=== PATIENT | female | born 1945 | race Caucasian/White ===

== ENCOUNTER 2023-10-07 02:49 | Inpatient (IN) | payer OTHER, SELFPAY ==
[2023-10-06 23:10] VITALS: BP 124/98; BMI 23.5
[2023-10-06 23:21] LABS: % Basophils 0.5 % (0-2); % Immature Granulocytes 0.3 % (0-0.5); % Lymphocytes 11.3 % (20.5-51.1); % Monocytes 0.3 % (1.7-9.3); % Neutrophils 86.6 % (42.2-75.2); Absolute Eosinophils 0.1 10^3/uL (0-0.7); Absolute Lymphocytes 0.7 10^3/uL (1.2-3.4); Absolute Neutrophils 5.3 10^3/uL (1.4-6.5); Hematocrit 40.4 % (37.0-47.0); Hemoglobin 13.7 g/dL (12.0-16.0); Mean Corp Hgb Conc. 33.9 g/dL (33.0-37.0); Mean Corpuscular Hgb 29.7 pg (27.0-31.0); Mean Corpuscular Volume 87.6 fL (81.0-99.0); Mean Platelet Volume 9.7 fL (7.4-10.4); Nucleated Red Blood Cells % 0 %; Platelet Count 173 10^3/uL (130-400); Red Blood Cell Count 4.61 10^6/uL (4.20-5.40); White Blood Cell Count 6.1 10^3/uL (4.8-10.8)
--- NOTE | 2023-10-06 23:24 | ED.GENMED ---
History of Present Illness
General
Chief Complaint: Abdominal Symptoms
Source: patient and ambulance crew
Exam Limitations: none
Time Seen by Provider: 10/06/23 23:14
Nursing documentation reviewed up to this point in time: agreed with
History of Present Illness
History of Present Illness:
This is an 78-year-old woman who resides at home with her . She has remote history of kidney stones, remote history of neuropathy of her feet, takes no medicines on a daily basis.
She and her were vacationing in [place] for a week, fishing, and returned today. She complains of somewhat abrupt onset of left lateral flank pain that began this evening. Flank pain has been persistent over the past several hours with
onset of shaking chills, nausea and vomiting tonight. She continues with moderate shaking chills and presents via EMS.
She denies cough nor congestion, no chest pain nor palpitations, no dizziness nor lightheadedness. She denies diarrhea or constipation, denies dysuria and urgency and or hematuria.
She admits that while vacationing in [place] it was quite hot and humid but she attempted to keep up with her fluids. She denies insect bites nor stings, denies rash. She denies headache, denies neck nor back pain.
No close contacts with similar symptoms.
She took 2 Tums tonight with onset of symptoms but then vomited.
Past History
Past History
ED Past Medical History: Other (Kidney stones, idiopathic neuropathy of feet)
ED Past Surgical History: Gynecological (Hysterectomy/cystocele/rectocele repair 2004) and Other (Inguinal as well as umbilical hernia repair December 2022)
Social History
Tobacco: Non-smoker
Alcohol: None
Drug: None
Personal:
Living: with family
Employment: Retired
Family History
Family History: Other (Noncontributory)
Phy Exam
Physical Exam
Physical Exam:
GENERAL: 78-year-old woman appears somewhat younger than stated age, awake and alert, appears in moderate distress, moderately tremulous. Cooperative. Vital signs reviewed. Febrile with oral temperature 100.3 �F. Normotensive.
EYE: pupils equal and reactive. anicteric
NECK: Supple, nontender, no meningismus, no significant adenopathy.
ENT: posterior pharynx is clear, oral mucosa is moist. TM clear b/l, nares patent.
CARDIAC: Regular rate and rhythm. no murmur.
LUNGS: Clear breath sounds bilaterally, no acute respiratory distress, no wheezes/rales/rhonchi
ABDOMEN: Soft, nondistended, without focal tenderness, no r/g, mild left CVA tenderness with percussion. Normoactive BS.
NEUROLOGICAL: Alert and oriented x3, no focal neuro deficits. Gait is logan and steady. Moderate resting tremor.
SKIN: Hot to touch and dry, normal color, skin intact. No rash.
MUSCULOSKELETAL: No C/C/E. peripheral pulses are full and equal b/l. No palpable tenderness.
PSYCH: Mildly anxious, tremulous, easily communicative.
Course
Orders/Labs/Results
Orders:
Orders
10/06/23 23:14
Complete Blood Count/With Diff Urgent
Comprehensive Metabolic Panel Urgent
Lipase Urgent
10/06/23 23:16
Urinalysis Reflex To Culture Urgent
Date Specimen was Collected: 10/07/23
Time Specimen was Collected: 00:21
0.9% Sodium Chloride 1000 ml [Nss] 2,200 ml IV NOW STA
10/06/23 23:19
COVID-19 Antigen Urgent
Source: Nasal Swab
Lactic Acid Urgent
10/06/23 23:22
Blood Culture Urgent
ILDA Source: Blood/Venous
Specimen Description:
10/06/23 23:23
Acetaminophen 1000MG/100Ml [Ofirmev] 1,000 mg in 100 ml IV ONCE
Acetaminophen IV Indication:: Targeted Temp Management
Ondansetron Injectable [Zofran] 4 mg IV NOW STA
10/07/23 00:05
CT Abd/pelvis W Iv Cont Urgent
Reason For Exam: fever, rigors, left flank pain, N/V
10/07/23 00:31
Urine Microscopic Reflex Cult Urgent
Urine Culture Urgent
ILDA Source: U
Specimen Description:
Date Specimen was Collected: 10/07/23
Time Specimen was Collected: 00:21
10/07/23 01:40
Piperacillin/Tazo 4.5 Gram [Zosyn] 4.5 gram in 100 ml IV NOW
10/07/23 02:01
Admit/Transfer Patient As Directed
Co-Sign Provider:
Level of Care: Inpatient admission
Assign to:: Telemetry
Physician / Group: judy
Diagnosis: SIRS suspect evolving sepsis due to proximal 4 m Lt ureteric stone
Reason for Telemetry: Other
Other Reason for Telemetry: sepsis
Date to Stop Telemetry: 10/09/23
Time to Stop Telemetry: 11:00
Reason for Hospitalization: SIRS picture suspect evolving sepsis due to proximal 4 m Lt ureteric stone
suspect infected
At risk for acute Lt pyelonephritis
Associated mild renal insufficiency
Expected length of stay greater than two midnights?: Yes
ELOS- Estimated Length of Stay in days: 2
I certify the patient meets the requirements for IP care: Yes
10/07/23 02:02
Code Status As Directed
Resuscitation Status: Full Code
10/07/23 02:51
0.9% Sodium Chloride 1000 ml [Nss] 1,000 ml IV 100 mls/hr
Acetaminophen [Tylenol] 650 mg PO Q4HPRN PRN
HYDROmorphone [Dilaudid] 0.5 mg IV Q3HPRN PRN
Ondansetron Injectable [Zofran] 4 mg IV Q6HPRN PRN
10/07/23 02:51
UROLOGY CONSULT Routine
Consulting Provider: Baljit Panda Jr.
Was physician already notified: Yes
Comment: SIRS picture suspect evolving sepsis due to prox 4 m Lt ureteric stonne
Activity As Directed
Activity Level: With Assistance
Intake/ Output As Directed
Frequency: Per unit guidelines
Pneumatic Compression Sleeves As Directed
Type: Knee high
Vital Signs As Directed
Frequency: Per unit guidelines
Weight As Directed
Frequency: Daily
DX Deep Vein Thrombosis Video Routine
10/07/23 03:40
Complete Blood Count/No Diff IN AM
Comprehensive Metabolic Panel IN AM
Lactic Acid Q4H
Comment: repeat q4 hours x 4 or until less than 2 mmol/L
10/07/23 06:00
CefTRIAXone [Rocephin] 1,000 mg IV Q24H
10/07/23 06:56
Lactic Acid Q4H
Comment: repeat q4 hours x 4 or until less than 2 mmol/L
10/07/23 08:00
Tamsulosin [Flomax] 0.4 mg PO DAILY
10/07/23 10:37
Lactic Acid Q4H
Comment: repeat q4 hours x 4 or until less than 2 mmol/L
10/07/23 14:59
Lactic Acid Q4H
Comment: repeat q4 hours x 4 or until less than 2 mmol/L
10/09/23 11:00
DC Protocol for Telemetry ONCE
Abnormal Lab Results
10/06/23 10/06/23 10/07/23
23:14 23:19 00:31
Absolute Lymphs (auto) 0.7 L 10^3/uL
(1.2-3.4)
Absolute Monos (auto) 0.0 L 10^3/uL
(0.1-0.6)
Neutrophils % 86.6 H %
(42.2-75.2)
Lymphocytes % 11.3 L %
(20.5-51.1)
Monocytes % 0.3 L %
(1.7-9.3)
BUN 29 H mg/dl
(7-17)
Glucose 125 H mg/dl
(70-99)
Lactic Acid 3.0 H mmol/L
(0.7-2.0)
Ur Occult Blood Reflex 1+ A
(Negative)
Leukocyte Esterase Rfl 1+ A
(Negative)
Urine RBC 3-6 A /HPF
(0-2)
Urine Bacteria (Reflex) Few A
(Negative)
10/06/23 23:14
10/06/23 23:14
Vital Signs
Initial and Last Documented VS:
Initial Vital Signs
Temp Pulse Resp BP Pulse Ox
100.3 F 94 18 124/98 95
10/06/23 23:10 10/06/23 23:10 10/06/23 23:10 10/06/23 23:10 10/06/23 23:10
Last Documented Vital Signs
Temp Pulse Resp BP Pulse Ox
100.2 F 50 16 121/56 96
10/07/23 19:00 10/07/23 19:00 10/07/23 19:00 10/07/23 19:00 10/07/23 19:00
MDM/Problems Addressed
Differential Diagnosis Includes:
Acute febrile illness with onset of tremor, concerning for rigors, concerning for SIRS/sepsis.
Left flank pain concerning for pyelonephritis, kidney stone.
With nausea and vomiting, concern for early small bowel obstruction, other consideration is colitis gastroenteritis, left lower lobe pneumonia, viral syndrome.
Will initiate IV fluid bolus, IV Tylenol for fever and IV Zofran for nausea.
Labs are pending including lactic acid, blood cultures. Will check urinalysis with reflex to culture.
COVID-19 antigen pending. Acute COVID URI is less likely as patient has not had a cough nor congestion.
Will plan for CT abdomen and pelvis to assess for potential kidney stone, colitis or other acute intra-abdominal process.
Chronic conditions affecting care: Previous abdomnial surgery (Hysterectomy/cystocele/rectocele repair 2004. Umbilical and left inguinal hernia repair December 2022) and Kidney disease (History of kidney stones)
*Radiology
Radiology exam reviewed: radiology read reviewed
*Pulse Oximetry
Patient hypoxic: no
*Critical Care Note
Total Time (30-74mins, 75-104mins- exclusive of procedures): 30
comment:
Critical care statement: A total of 30 minutes of critical care time was provided for this patient. This includes management of unstable vital signs, evaluation of the patient at bedside, reviewing the patient's pertinent medical records, discussion
with consultants, review of old EKGs and review of pertinent medical records. This time with separate from time utilized to perform the aforementioned documented procedures
Update Note
Update Note:
10/07/2023 01:50 AM
Patient remains hemodynamically stable. Fevers improving.
Lactic acid elevated at 3.0. Normal white blood cell count.
Urinalysis not consistent with UTI however CT shows an obstructing proximal left ureteral stone with moderate hydronephrosis with perinephric stranding concerning for pyelonephritis/infected stone.
IV Zosyn initiated.
Hospitalist as well as urology notified.
Will admit to hospitalist service with plan for urgent urology evaluation this a.m.
ED Attending Note
-
Portions of this chart may have been created with voice recognition software.� Occasional wrong word or��sound alike� substitutions may have occurred due to the inherent limitations of voice recognition software.
Discharge Plan
Departure
Patient Disposition: Admit
Date of Disposition: 10/07/23
Time of Disposition: 01:59
Admit to: IMU
Admit to doctor: Judy
Presentation/result/management discussed w/ accepting MD/DO: Hospitalist
Condition: Serious
Discharge Problem:
Calculus of proximal left ureter, SIRS (systemic inflammatory response syndrome)
Interventions
Interventions:
*Risk Screen - Suicide Last Done: 10/07/23 03:00
*General Assessment Last Done: 10/06/23 23:12
*Neglect/Abuse Screening Last Done: 10/06/23 23:12
ED- Fall Risk Assessment Last Done: 10/07/23 02:22
*ED COVID-19 Vaccine History Last Done: 10/07/23 03:00
*Nursing Disposition Last Done: 10/07/23 02:32
NO-Daykjl-Hijasrbuzl Assessment Last Done: 10/06/23 23:38
Discharge Date and Time
Discharge Date/Time: 10/07/23 02:33
[2023-10-06] MEDS: NSS 2200 ML IV (23:26)
[2023-10-06] MEDS: ZOFRAN 4 MG IV (23:31)
[2023-10-06] MEDS: OFIRMEV 100 IV (23:32)
[2023-10-06 23:36] LABS: ALT (SGPT) 27 U/L (0-35); AST (SGOT) 33 U/L (14-36); Albumin 4.7 g/dl (3.5-5.0); Alkaline Phosphatase 74 U/L (38-126); Blood Urea Nitrogen 29 mg/dl (7-17); Calcium 9.7 mg/dl (8.4-10.2); Carbon Dioxide 26 mmol/L (22-30); Chloride 106 mmol/L (98-107); Estimated Creatinine Clearance 49 ml/min; Glucose 125 mg/dl (70-99); Lipase 193 U/L (23-300); Potassium 4.2 mmol/L (3.5-5.1); Sodium 141 mmol/L (135-145); Total Bilirubin 0.8 mg/dl (0.2-1.3); Total Protein 7.4 g/dl (6.3-8.2); eGFR 56.95
[2023-10-06 23:38] LABS: COVID-19 Antigen Negative (Negative)
[2023-10-07] VITALS (14 sets, daily range): BP systolic 106–135; BP diastolic 42–57; BMI 23.2
[2023-10-07 00:38] LABS: Urine Albumin Negative (Neg - Trace); Urine Bilirubin Negative (Negative); Urine Character Clear (Clear); Urine Color Straw; Urine Glucose Negative (Negative); Urine Ketone Negative (Negative); Urine Leukocyte 1+ (Negative); Urine Nitrite Negative (Negative); Urine Occult Blood 1+ (Negative); Urine Specific Gravity 1.015 (<1.030); Urine Urobilinogen Negative (Neg - 1+)
[2023-10-07 00:53] LABS: Urine Bacteria Few (Negative)
[2023-10-07] MEDS: ZOSYN 100 IV (01:53)
--- NOTE | 2023-10-07 01:55 | HPS.HSE ---
Family Physician
-
Family Physician: NOT KNOW UNKNOWN - PT DOES
Chief Complaint
-
acute Lt flank pain with chills
History of Present Illness
78F [facility] HX HX Kidney stone, idiopathic peripheral neuropathy of feet seen at ER for evaluation of Lt flank pain
Abrupt onset of Lt flank pain
- vacationing in the are from [place]
- persistent pain for last few hrs
- then followed by onset of chills and rigors nausea and vomiting tonight.
- Denies dysuria and urgency and or hematuria.
- Remote HX Kidney stones x2 with spontaneous passage with IVF
ROS:
- denies diarrhea or constipation
At ER
T max was 100.3 HR > 90
Medical History
Past Medical History
Past Medical History: Reports Other
Additional Past Medical History:
Kidney stones
Idiopathic neuropathy of feet
Past Surgical History: Reports Other
Additional Past Surgical History:
Hysterectomy/cystocele/rectocele repair 2004
Inguinal as well as umbilical hernia repair December 2022
Social History
Tobacco: Non-smoker
Alcohol: None
Drug: None
Personal:
Living: With Family
Family History
Family History: Not pertinent
Allergies / Home Medications
Allergies reflects when Allergies were last updated in [facility].
Home Medications with original date entered in [facility]
Allergy/Medication List:
Allergies
Allergy/AdvReac Type Severity Reaction Status Date / Time
No Known Allergies Allergy Verified 01/24/23 09:00
Home Medications
ascorbic acid (vitamin C) 500 mg tablet (Vitamin C) 500 mg PO DAILY 01/19/23
cholecalciferol (vitamin D3) 50 mcg (2,000 unit) tablet (Vitamin D3) 50 mcg PO DAILY 01/19/23
hydrochlorothiazide 12.5 mg tablet 12.5 mg PO DAILY 01/19/23
magnesium glycinate 100 mg (as glycinate) tablet 200 mg PO DAILY 01/19/23
vitamin K2 100 mcg capsule 100 mcg PO DAILY 01/19/23
zinc acetate 50 mg (zinc) capsule 50 mg PO DAILY 01/19/23
acetaminophen 325 mg tablet 650 mg (2 x 325 mg) PO Q4HPRN PRN mild pain #1 tab 01/24/23
ibuprofen 200 mg tablet 400 - 600 mg (2 - 3 x 200 mg) PO Q6HPRN PRN moderate pain #1 tab 01/24/23
oxycodone 5 mg tablet 5 mg PO Q4HPRN PRN breakthrough/severe pain #10 tabs 01/24/23
Review of Systems
-
Constitutional: Reports Fever, Chills and Other (rigors )
EENT: Reports No Symptoms
Respiratory: Reports No Symptoms
Cardiac: Reports No Symptoms
Abdomen/GI: Reports Abdominal Pain (Lt flank pain ), Nausea and Vomiting; Denies Diarrhea or Constipated
: Reports Flank Pain (Lt flank ); Denies Dysuria or Frequency
Musculoskeletal: Reports No Symptoms
Skin: Reports No Symptoms
Neurological: Reports No Symptoms
Endocrine: Reports No Symptoms
Hematologic/Lymphatic: Reports No Symptoms
Psych: Reports No Symptoms
Physical Exam
Vital Signs
Vital Signs
Temp Pulse Resp BP Pulse Ox
99.8 F 94 18 124/98 95
10/07/23 00:30 10/06/23 23:10 10/06/23 23:10 10/06/23 23:10 10/06/23 23:10
Physical Exam
General: Well Developed, Well Nourished, No Apparent Distress, Comfortable and Conversant
HEENT: NormoCephalic, Anicteric and Moist mucous membranes
Respiratory: Clear; No Wheezes, Rales or Rhonchi
Cardiac: S1/S2 and Regular Rhythm; No Murmur
Breast: Deferred by me
GI: Soft, Non Tender, Non Distended and Normal Bowel Sounds
Genito-urinary: No costovertebral tender (with deep palpation to Lt CVA on my exam )
Musculoskeletal: No Edema
Skin: Warm and Dry
Neuro: AO x 3 and Nonfocal/grossly intact
Psych: Calm and Intact Judgment/Insight
Laboratory Results
-
10/06/23 23:14
10/06/23 23:14
Laboratory Results
Lactic Acid 3.0 mmol/L (0.7-2.0) H 10/06/23 23:19
Total Bilirubin 0.8 mg/dl (0.2-1.3) 10/06/23 23:14
AST 33 U/L (14-36) 10/06/23 23:14
ALT 27 U/L (0-35) 10/06/23 23:14
Alkaline Phosphatase 74 U/L (38-126) 10/06/23 23:14
Lipase 193 U/L (23-300) 10/06/23 23:14
Data Reviewed
-
CT Scan: Discussed with Physician
Lab Data: Labs Reviewed by me
Impression/Plan
-
Reviewed VS: T max 100.3 HR 94 BP 124/98
Data
WCC 6.1
Cr 1.0
eGFR 56
LA 3.0
UA: unremarkable
NEG Covid
Prelim CT AP
4 mm stone at prox ureter.
NO PRIOR hospitalist admission:
ASSESSMENT & PLAN
Pending Rx reconciliation
SIRS picture suspect evolving sepsis due to proximal 4 m Lt ureteric stone suspect infected
At risk for acute Lt pyelonephritis
Associated mild renal insufficiency
Remote HX Kidney stones x2 with spontaneous passage with IVF
- BCx sent
- IV CFTX in place of Zosyn
- NPO and IVF
- PRN Analgesia
- PRN antiemetics
- trend Cr
- Flomax 0.4 mg daily
- Uro consulted and will take her to OR as first case
Essential HTN
- held HCTZ for now
DVT Px: SCD
Code: Full
IP TLM
--- NOTE | 2023-10-07 03:00 | PTCARENOTE ---
Pt arrived from ED on 10/06 at 02:45 with a dx of SIR suspect evoling sepsi due to proximal 4M ureteric stone. AxO3, bed in low position and her call mercer is in reach.
[2023-10-07] MEDS: NSS 1000 IV ×3 (03:10→23:20)
[2023-10-07 03:58] LABS: Hemoglobin 12.2 g/dL (12.0-16.0); Mean Corp Hgb Conc. 33.9 g/dL (33.0-37.0); Mean Corpuscular Hgb 29.8 pg (27.0-31.0); Mean Platelet Volume 9.3 fL (7.4-10.4); Platelet Count 128 10^3/uL (130-400); Red Blood Cell Count 4.09 10^6/uL (4.20-5.40); Red Cell Dist. Width 13.1 % (11.5-14.5); White Blood Cell Count 5.8 10^3/uL (4.8-10.8)
[2023-10-07 04:15] LABS: ALT (SGPT) 48 U/L (0-35); AST (SGOT) 96 U/L (14-36); Albumin 3.6 g/dl (3.5-5.0); Alkaline Phosphatase 66 U/L (38-126); Blood Urea Nitrogen 25 mg/dl (7-17); Carbon Dioxide 23 mmol/L (22-30); Chloride 109 mmol/L (98-107); Estimated Creatinine Clearance 49 ml/min; Glucose 131 mg/dl (70-99); Lactic Acid 2.9 mmol/L (0.7-2.0); Potassium 3.7 mmol/L (3.5-5.1); Sodium 140 mmol/L (135-145); Total Bilirubin 1.3 mg/dl (0.2-1.3); eGFR 56.95
[2023-10-07] MEDS: ROCEPHIN 1000 MG IV ×2 (05:29→15:43)
[2023-10-07] MEDS: STERILE WATER FOR INJECTION 10 ML IV ×2 (05:29→15:43)
--- NOTE | 2023-10-07 07:12 | CON.MD ---
Consultation - Medical
-
see dictated note
pt with remote hx of stones
says she knows she had 'stones' in the left kidney
presents with some left flank pain/fevers and chills
fortunately- HD stable
CT shows abnl appearing left kidney=- multiple cysts- appears to have complex caliceas with large stone burden
prox left ureteral stone with hydro
plan
reviewed with pt
explained the importance of stent decompression of kidney with stone and fever
reviewed the possible need for perc tube
reviewed risks of non intervention
reviewed possible post op sepsis
to proceed to OR within the hour for stent
[2023-10-07 07:33] LABS: Lactic Acid 2.6 mmol/L (0.7-2.0)
--- NOTE | 2023-10-07 07:37 | PTCARENOTE ---
Pt transported to OR bed 1 with assistance of PCT. Pt urinated. VSS.
--- NOTE | 2023-10-07 08:15 | W.IMMPOSTOP ---
Surgical Immed Post Op Note
-
Primary Surgeon:
mayra
Assisting Surgeon:
Pre-op Diagnosis:
left ureteral stone
Post-op Diagnosis:
same
Procedure Performed:
cysto/left ureteral stent
Anesthesia Type:
gen
Specimen / Cultures:
ucx
Estimated Blood Loss:
1cc
Complications:
none
Operative Findings:
large complex stone burden in left kidney
stent placed- no sig pyonephrosis
gent given pre-procedure
to pacu in stable condition
[2023-10-07 09:32] LABS: Urine Albumin Trace (Neg - Trace); Urine Bilirubin Negative (Negative); Urine Character Slightly Cloudy (Clear); Urine Color Yellow; Urine Glucose Negative (Negative); Urine Ketone Negative (Negative); Urine Leukocyte 2+ (Negative); Urine Nitrite Positive (Negative); Urine Occult Blood 4+ (Negative); Urine Specific Gravity 1.005 (<1.030); Urine Urobilinogen Negative (Neg - 1+)
--- NOTE | 2023-10-07 09:40 | PTCARENOTE ---
Pt received from PACU. Pt is not complaining of pain at this time. Slightly drowsy. NSR. Pt ambulating to the bathroom with a one person assist.
[2023-10-07 09:46] LABS: Urine Bacteria Moderate (Negative); Urine Red Blood Cell 0-2 /HPF (0-2); Urine White Cell 40-50 /HPF (0-5)
[2023-10-07 10:56] LABS: Lactic Acid 2.1 mmol/L (0.7-2.0)
--- NOTE | 2023-10-07 13:20 | CM ---
Reviewed the chart notes and spoke with the patient at the bedside. The patient resides with her spouse in a two story home with multiple steps to enter. The patient reports on DME/VN/SNF in the past. The patient confirmed her pharmacy of choice
is the [facility]. CM continues to be available to patient/family and is monitoring medical plan for needs at discharge.
Plan: Discharge plans will depend on the patient's progress.
--- NOTE | 2023-10-07 13:35 | W.PN.HOSP.TC ---
Today's Communication/Plan
-
iv abx
f/u cultures
urology placed stent today
monitor UO and renal function
Assessment / Plan
Assessment / Plan
Physical Exam
General: Well Developed, Well Nourished, No Apparent Distress, Comfortable and Conversant
HEENT: NormoCephalic, Anicteric and Moist mucous membranes
Respiratory: Clear; No Wheezes, Rales or Rhonchi
Cardiac: S1/S2 and Regular Rhythm; No Murmur
Breast: Deferred by me
GI: Soft, Non Tender, Non Distended and Normal Bowel Sounds
Genito-urinary: No costovertebral tender (with deep palpation to Lt CVA on my exam )
Musculoskeletal: No Edema
Skin: Warm and Dry
Neuro: AO x 3 and Nonfocal/grossly intact
Psych: Calm and Intact Judgment/Insight
#Sepsis
#Complex left ureteral stone
#Possible pyelonephritis
�Continue IV antibiotics
� Follow-up cultures
� Maintain MAP greater than 65
� IV fluids
#Moderate left hydronephrosis
#Left nephrolithiasis
� Stent placed today
� Urology on board
Continue to monitor urinary function
Essential HTN
- held HCTZ for now
DVT Px: HSQ
Code: Full
Total time spent on today's encounter was 50 minutes which included time spent in counseling the patient/family regarding diagnosis and treatment plan as listed above, goals of care, and symptom management. Case was discussed with nursing staff,
specialists, and care coordinators/case management. All labs and imaging personally reviewed by me. Remainder the time spent in detailed review of previous records, lab data, imaging, and other medical provider documentation.
Anticipated Discharge: 24 - 48 hours
Subjective/Interval History
-
Date of Service: October 07, 2023
For stent today, no acute events overnight
Objective Data
-
Labs:
Laboratory Results
10/07/23
03:40
WBC 5.8
Hgb 12.2
Hct 36.0 L
Plt Count 128 L D
Sodium 140
Potassium 3.7
Chloride 109 H
Carbon Dioxide 23
BUN 25 H
Creatinine 1.0
Glucose 131 H
Calcium 9.0
Total Bilirubin 1.3
AST 96 H
ALT 48 H
Alkaline Phosphatase 66
Vital Signs:
Vital Signs
Temp Pulse Resp BP Pulse Ox
97.6 F 63 17 106/42 96
10/07/23 11:45 10/07/23 11:45 10/07/23 11:45 10/07/23 11:45 10/07/23 11:45
I&O
10/06/23 10/07/23 10/08/23
06:59 06:59 06:59
Intake Total 103 / 103
Output Total 300 / 300
Balance -300 / -300 103 / 103
Review of Systems
-
History Source: Patient
All other systems: Not reviewed unless documented
Data Reviewed
-
CT Scan: Image personally visualized and interpreted and Report Reviewed by me
Labs: Labs Reviewed by me
[2023-10-07 15:18] LABS: Lactic Acid 2.6 mmol/L (0.7-2.0)
[2023-10-07] MEDS: Pyridium 100 MG PO ×2 (15:37→23:19)
[2023-10-07] MEDS: STERILE WATER FOR INJECTION IV (15:43)
[2023-10-07] MEDS: HEPARIN 5000 UNITS SC (20:35)
[2023-10-08] VITALS (7 sets, daily range): BP systolic 114–146; BP diastolic 44–64; BMI 23.8
--- NOTE | 2023-10-08 06:29 | W.PN.URO.CBU ---
Today's Communication / Plan
-
outpt f/u with dr nunez
Diagnosis
-
Date of Service: October 08, 2023
-
Patient Diagnosis:
Post Op Day:
Objective
-
Vital Signs
Temp Pulse Resp BP Pulse Ox
98.0 F 36 16 114/44 97
10/08/23 03:00 10/08/23 03:00 10/08/23 03:00 10/08/23 03:00 10/08/23 03:00
Intake and Output
10/06/23 10/07/23 10/08/23
06:59 06:59 06:59
Intake Total 3943 / 3943
Output Total 300 / 300 1775 / 1775
Balance -300 / -300 2168 / 2168
Intake:
Oral fluids 1443 / 1443
IV fluids (Total) 2500 / 2500
NS 100 / 100
Output:
Urine, Voided 300 / 300 1775 / 1775
Other:
Number of approximated MODERATE 2
amounts of urine
Physical Exam
-
General - well developed, well nourished, no acute distress
Chest - clear bilaterally
Abdomen - soft, non-tender, positive bowel sounds, no CVAT, no incisional pain or distention
Genitalia - normal
Rectal - normal
Skin - warm & dry with no rash
Neuro - AOx3, no motor deficits
Extremities - no clubbing, no cyanosis, no edema
Incision - clean, dry
Dressing - clean, dry, intact
--- NOTE | 2023-10-08 06:30 | W.PN.URO.CBU ---
Today's Communication / Plan
-
await cx's
Assessment / Plan
-
complex left renal stone burden with obstructing prox stone- s/p stent
gram neg bacteremia-suspect gu source
continue antibx- await cx results
outpt f/u with dr nunez
? cardiology eval for bradycardia- will defer to med team
Diagnosis
-
Date of Service: October 08, 2023
-
Patient Diagnosis
complex left renal stone burden with obstructing prox left ureteral stone
gram neg bacteremia
Post Op Day:
left ureteral stent 10/06
Subjective
-
pt stable
no fevers
voiding without difficulty
ucx pending- blood cx + for gram neg rods
also some asymptomatic bradycardia
Objective
-
Vital Signs
Temp Pulse Resp BP Pulse Ox
98.0 F 36 16 114/44 97
10/08/23 03:00 10/08/23 03:00 10/08/23 03:00 10/08/23 03:00 10/08/23 03:00
Intake and Output
10/06/23 10/07/23 10/08/23
06:59 06:59 06:59
Intake Total 3943 / 3943
Output Total 300 / 300 1774 / 177
Balance -300 / -300 2168 / 2168
Intake:
Oral fluids 1443 / 1443
IV fluids (Total) 2500 / 2500
NS 100 / 100
Output:
Urine, Voided 300 / 300 1774 / 177
Other:
Number of approximated MODERATE 2
amounts of urine
Review of Systems
-
Constitutional: Fatigue
Respiratory: No Symptoms
Cardiac: No Symptoms
Abdomen/GI: No Symptoms
Physical Exam
-
General - no acute distress
--- NOTE | 2023-10-08 06:30 | PTCARENOTE ---
Pt HR rate dipped to 30's overnight then into the 20s. Pt was not sleeping at the time her heart rate went to 27. I went in to check on Mrs. Monahan often throughout the night. She was awake and asymptomatic. I [place] Texted SALES TEACHER Cecilia Rivera to make her
aware. I suggested a Cardio consult. She gave no new orders but said she would pass it on to her replacement on & I should do the same.
[2023-10-08 07:58] LABS: Hematocrit 36.5 % (37.0-47.0); Mean Corp Hgb Conc. 32.9 g/dL (33.0-37.0); Mean Corpuscular Hgb 29.5 pg (27.0-31.0); Mean Corpuscular Volume 89.7 fL (81.0-99.0); Mean Platelet Volume 10.1 fL (7.4-10.4); Platelet Count 139 10^3/uL (130-400); Red Blood Cell Count 4.07 10^6/uL (4.20-5.40); Red Cell Dist. Width 13.4 % (11.5-14.5); White Blood Cell Count 10.1 10^3/uL (4.8-10.8)
[2023-10-08 08:26] LABS: ALT (SGPT) 195 U/L (0-35); AST (SGOT) 141 U/L (14-36); Albumin 3.4 g/dl (3.5-5.0); Alkaline Phosphatase 75 U/L (38-126); Blood Urea Nitrogen 24 mg/dl (7-17); Carbon Dioxide 20 mmol/L (22-30); Chloride 112 mmol/L (98-107); Estimated Creatinine Clearance 61 ml/min; Glucose 157 mg/dl (70-99); Magnesium 2.1 mg/dl (1.6-2.3); Potassium 4.7 mmol/L (3.5-5.1); Sodium 139 mmol/L (135-145); Total Bilirubin 0.6 mg/dl (0.2-1.3); eGFR > 60.00
--- NOTE | 2023-10-08 08:29 | W.PN.HOSP.TC ---
Today's Communication/Plan
-
cardiology consult for asymptomatic bradycardia in 30's
Troponins, TTE
continue IV Ceftriaxone
F/U cultures
appreciate Urology
Assessment / Plan
Assessment / Plan
Physical Exam
General: Well Developed, Well Nourished, No Apparent Distress, Comfortable and Conversant
HEENT: NormoCephalic, Anicteric and Moist mucous membranes
Respiratory: Clear; No Wheezes, Rales or Rhonchi
Cardiac: S1/S2 and Regular Rhythm; No Murmur
Breast: Deferred by me
GI: Soft, Non Tender, Non Distended and Normal Bowel Sounds
Genito-urinary: No costovertebral tender (with deep palpation to Lt CVA on my exam )
Musculoskeletal: No Edema
Skin: Warm and Dry
Neuro: AO x 3 and Nonfocal/grossly intact
Psych: Calm and Intact Judgment/Insight
#Sepsis
#Complex left ureteral stone
Pyelonephritis
Gram Negative Bacteremia
-continue IV Ceftriaxone 2G q 24 hours
-F/U final blood and urine cultures
-s/p cysto/stent placement on 10/06
-appreciate Urology consult
-IVF
Bradycardia - asymptomatic
-K and Mag OK
-EKG with bradycardia @ 38, TWI III, aVF, V5, poor R wave progression
-trend Troponins, TTE
-cardiology consult
-atropine at bedside
Essential HTN
- held HCTZ for now --> patient wasn't taking at home
DVT Px: HSQ
Code: Full
Total time spent on today's encounter was 50 minutes which included time spent in counseling the patient/family regarding diagnosis and treatment plan as listed above, goals of care, and symptom management. Case was discussed with nursing staff,
specialists, and care coordinators/case management. All labs and imaging personally reviewed by me. Remainder the time spent in detailed review of previous records, lab data, imaging, and other medical provider documentation.
Anticipated Discharge: > 48 hours
Subjective/Interval History
-
Date of Service: October 08, 2023
no dizziness or lightheadedness
no chest pain or shortness of breath
no further fevers overnight
Objective Data
-
Labs:
Laboratory Results
10/08/23
07:23
WBC 10.1
Hgb 12.0
Hct 36.5 L
Plt Count 139
Sodium 139
Potassium 4.7 D
Chloride 112 H
Carbon Dioxide 20 L
BUN 24 H
Creatinine 0.8
Glucose 157 H
Calcium 9.0
Total Bilirubin 0.6
AST 141 H
ALT 195 H
Alkaline Phosphatase 75
Vital Signs:
Vital Signs
Temp Pulse Resp BP Pulse Ox
97.5 F 37 18 146/60 94
10/08/23 07:45 10/08/23 07:45 10/08/23 07:45 10/08/23 07:45 10/08/23 07:45
I&O
10/07/23 10/08/23 10/09/23
06:59 06:59 06:59
Intake Total 3943 / 3943
Output Total 300 / 300 1775 / 1775
Balance -300 / -300 2168 / 2168
Review of Systems
-
History Source: Patient
All other systems: Reviewed and negative
Physical Exam
-
General: No Apparent Distress
HEENT: PERRLA
Respiratory: Clear to Auscultation; Negative Wheezes
Cardiac: Bradycardic
GI: Soft and Nontender
Musculoskeletal: No Edema
Skin: Warm and Dry; Negative Rash
Neuro: AO x 3
Psych: Calm
Data Reviewed
-
Diagnostic Radiology: Report Reviewed by me
Labs: Labs Reviewed by me
[2023-10-08] MEDS: HEPARIN 5000 UNITS SC ×2 (09:00→20:43)
[2023-10-08] MEDS: Pyridium 100 MG PO ×3 (09:00→23:31)
[2023-10-08 09:57] LABS: Troponin I 0.023 ng/ml
--- NOTE | 2023-10-08 10:05 | PTCARENOTE ---
Patients HR has been running in the 30's throughout last night according to Night RN and has remained in the 30-40's since the start of shift. Dr. Rodrigues made aware around 0743. According to night RN, POTATO SEED CUTTER overnight was made aware. EKG ordered and
done. Patient asymptomatic. Cardiology C/S pending. Patient remains on tele. Will continue to monitor.
[2023-10-08] MEDS: NSS IV (10:57)
--- NOTE | 2023-10-08 11:59 | CON.CAR ---
Addendum entered and electronically signed by Charanjit Norris MD 10/08/23 12:47:
I saw and examined the patient.
The SQL PROGRAMMER or PA's note was reviewed and I agree with the note.
Comment: General: Well developed, well nourished in NAD.
Neck: Supple, no JVD, HJR, carotids +2 B/L, no bruits bilaterally.
Heart: Non displaced PMI, RRR, no murmurs, No S3, S4, no rubs.
Lungs: Clear to auscultation bilaterally, no wheeze, rhonchi, rubs bilaterally,
normal expiratory phase.
Extremities: No clubbing, cyanosis or edema bilaterally.
Neuro: Grossly nonfocal, awake, alert and oriented x3.
Mallika has no significant past medical history except for kidney stones and neuropathy. She was admitted with urinary tract infection. Cardiology is consulted for asymptomatic bradycardia with heart rate in the 30s. She denies any chest pain,
shortness of breath, dizziness, near syncope. She is very active around her house and climbs steps without issues
She has sinus bradycardia with narrow complex. There is no indication for pacer implant. Heart rate normally is in the 70s but now is in the 30s and 40s. Will check echocardiogram to exclude structural heart disease. Will arrange outpatient
monitor. No treatment needed currently as she is asymptomatic
Original Note:
Consultation
Consultation Request
Date/Time Consultation Requested: 10/08/2023
Date/Time Consultation Performed: 10/08/2023
Requesting Provider: Dr. Rodrigues
Performing Provider: Cyndi Cortez PA-C for Dr. Charanjit Norris
Reason for Consultation: Asymptomatic bradycardia
Medical History
-
History of Present Illness:
Patient is a healthy 78-year-old female with past medical history significant for kidney stones, idiopathic neuropathy of feet who was recently was vacationing in [place] and upon returning home reported feeling unwell associated with shakes, rigors
and left flank pain. On the evening of 10/06/2023 patient developed acute onset of chills, rigors, nausea and vomiting causing her to present to emergency department. She was noted to have UTI with concern for sepsis complicated by left urethral
stone and gram-negative bacteremia. She was placed on IV antibiotics underwent cystoscopy with left urethral stent placement on 10/07/2023. Postoperatively patient developed asymptomatic bradycardia with heart rates in the 30s bpm prompting
cardiology consult. Patient reports at baseline she is active in the yard and gardening without cardiac complaints including chest pain, shortness of breath, dizziness, lightheadedness, syncope or palpitations. She reports years ago she had a
stress test after noting some mild dyspnea on exertion on 1 occasion. Stress test was unremarkable. She does not follow with cardiology as an outpatient. She does have a brother who suddenly at the age of 57. Unknown cause
PMH:
History of kidney stones
Idiopathic neuropathy of feet
Hysterectomy/cystocele/rectocele repair 2004
Inguinal/umbilical hernia repair December 2022
Right knee meniscal surgery June 2023
Past Medical History
Past Medical History: Other (See HPI)
Past Surgical History: Gynecological (Hysterectomy/cystocele/rectocele repair 2004), Orthopedic (Right knee meniscal surgery 2023), Urological (Cystoscopy and left ureteral stent placement 10/07/2023) and Other (Inguinal/umbilical hernia repair
December 2022)
Social History
Tobacco: Non-Smoker
Alcohol: Occasional
Drug: None
Personal:
Living: With Family
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
Family History
Family History: Sudden (Brother unexpectedly at age 57, cause unknown)
Allergies / Home Medications
Allergy/AdvReac Type Severity Reaction Status Date / Time
No Known Allergies Allergy Verified 01/24/23 09:00
�Medication �Instructions �Recorded �Confirmed �Type
acetaminophen 325 mg tablet 650 mg (2 x 325 mg) PO Q4HPRN PRN 01/24/23 10/07/23 Rx
mild pain #1 tab
ibuprofen 200 mg tablet 400 - 600 mg (2 - 3 x 200 mg) PO 01/24/23 10/07/23 Rx
Q6HPRN PRN moderate pain #1 tab
Review of Systems
-
History Source: Patient
All other systems: Negative unless noted
Physical Exam
Vital Signs
Temp Pulse Resp BP Pulse Ox
99.0 F 39 18 131/58 94
10/08/23 11:20 10/08/23 11:20 10/08/23 11:20 10/08/23 11:20 10/08/23 11:20
GEN: No distress, awake, Ox3, sitting in bed
HEENT: supple, anicteric, mmm
LUNGS: CTA bilaterally, no wheezes/rales
CV: Reg, S1/S2, no murmur, rubs or gallops
ABD: soft, BS+, NT/ND
EXT: No edema,, clubbing or cyanosis
NEURO: Gross non-focal
SKIN: No rash, warm, dry, pink
Lab Results
10/08/23 07:23
10/08/23 07:23
Troponin I 0.023 ng/ml 10/08/23 09:04
Impression / Plan
-
PCP: Dr. Elza Gutierrez
Manufacturing Sr Engineer: None prior to admission, initial consultation Dr. Norris
Impression:
Presented 10/06/2023 with rigors, weakness,
Sepsis with gram-negative bacteremia
UTI
Left ureteral stone with complex left renal stone burden
s/p cystoscopy and left ureteral stent placement 10/07/2023
History of kidney stones
Idiopathic neuropathy of feet
Hysterectomy/cystocele/rectocele repair 2004
Inguinal/umbilical hernia repair December 2022
Right knee meniscal surgery June 2023
Echo 10/08/2023: Ordered
Plan:
-Presented 10/06/2023 with left-sided flank pain associated with chills, rigors, nausea and vomiting
-Sepsis with gram-negative bacteremia likely secondary to UTI and complex left renal urethral stone
-Status post cystoscopy with left urethral stent placement 10/07/2023
-Continue antibiotics per primary team
-Patient developed asymptomatic bradycardia with heart rates in the 30s and 40s postoperatively.
-Patient reports normal heart rates are in the 70s. Review of telemetry does show preop heart rates in 70s.
-Patient currently hemodynamically stable
-Avoid AV alexis blocking agents
-Will check echocardiogram
-EKG 10/08/2023 sinus bradycardia 38 bpm, cannot rule out septal, lateral infarct
-Initial troponin 0.023. Repeat is pending
-Electrolytes stable with potassium of 4.7, magnesium 2.1
-Would consider having patient ambulate around unit and assess heart rate with exertion/activity
-Consider outpatient rn cardiac rehab
HPI 10/08/2023:
Patient is a healthy 78-year-old female with past medical history significant for kidney stones, idiopathic neuropathy of feet who was recently was vacationing in [place] and upon returning home reported feeling unwell associated with shakes, rigors
and left flank pain. On the evening of 10/06/2023 patient developed acute onset of chills, rigors, nausea and vomiting causing her to present to emergency department. She was noted to have UTI with concern for sepsis complicated by left urethral
stone and gram-negative bacteremia. She was placed on IV antibiotics underwent cystoscopy with left urethral stent placement on 10/07/2023. Postoperatively patient developed asymptomatic bradycardia with heart rates in the 30s bpm prompting
cardiology consult. Patient reports at baseline she is active in the yard and gardening without cardiac complaints including chest pain, shortness of breath, dizziness, lightheadedness, syncope or palpitations. She reports years ago she had a
stress test after noting some mild dyspnea on exertion on 1 occasion. Stress test was unremarkable. She does not follow with cardiology as an outpatient. She does have a brother who suddenly at the age of 57. Unknown cause
Data Reviewed
-
EKG: Report Reviewed by me, Discussed with Physician and Discussed with Patient
Labs: Labs Reviewed by me, Discussed with Physician and Discussed with Patient
Old Records: Reviewed
[2023-10-08 16:10] LABS: Troponin I 0.017 ng/ml
[2023-10-08] MEDS: ROCEPHIN 2000 MG IV (16:26)
[2023-10-08] MEDS: STERILE WATER FOR INJECTION 20 ML IV (16:26)
[2023-10-08 21:59] LABS: Troponin I 0.021 ng/ml
[2023-10-09] VITALS (8 sets, daily range): BP systolic 125–148; BP diastolic 52–70; PULSE 53–64; O2SAT 99; BMI 23.6
[2023-10-09 07:51] LABS: Hematocrit 35.1 % (37.0-47.0); Hemoglobin 11.8 g/dL (12.0-16.0); Mean Corp Hgb Conc. 33.6 g/dL (33.0-37.0); Mean Corpuscular Hgb 30.4 pg (27.0-31.0); Mean Corpuscular Volume 90.5 fL (81.0-99.0); Mean Platelet Volume 10.5 fL (7.4-10.4); Platelet Count 145 10^3/uL (130-400); Red Blood Cell Count 3.88 10^6/uL (4.20-5.40); Red Cell Dist. Width 13.6 % (11.5-14.5); White Blood Cell Count 9.4 10^3/uL (4.8-10.8)
[2023-10-09 08:27] LABS: ALT (SGPT) 139 U/L (0-35); AST (SGOT) 52 U/L (14-36); Albumin 3.3 g/dl (3.5-5.0); Alkaline Phosphatase 77 U/L (38-126); Blood Urea Nitrogen 26 mg/dl (7-17); Calcium 9.1 mg/dl (8.4-10.2); Carbon Dioxide 23 mmol/L (22-30); Chloride 111 mmol/L (98-107); Estimated Creatinine Clearance 54 ml/min; Glucose 112 mg/dl (70-99); Potassium 4.4 mmol/L (3.5-5.1); Sodium 140 mmol/L (135-145); Total Bilirubin 0.4 mg/dl (0.2-1.3); Total Protein 5.9 g/dl (6.3-8.2); eGFR > 60.00
[2023-10-09] MEDS: Pyridium 100 MG PO ×2 (09:21→15:25)
[2023-10-09] MEDS: HEPARIN 5000 UNITS SC ×2 (09:21→20:40)
--- NOTE | 2023-10-09 10:13 | W.PN.URO.CBU ---
Today's Communication / Plan
-
discharge when medically stable- outpt follow up with dr nunez
Assessment / Plan
-
complex left renal stone burden with obstructing prox stone- s/p stent
gram neg bacteremia-suspect gu source
continue antibx-
outpt f/u with dr nunez
Diagnosis
-
Date of Service: October 09, 2023
-
Patient Diagnosis
complex left renal stone burden with obstructing prox left ureteral stone
gram neg bacteremia
Post Op Day:
left ureteral stent 10/06
Subjective
-
pt feels well
blood and ucx + for ecoli- belcher sensitive
Objective
-
Vital Signs
Temp Pulse Resp BP Pulse Ox
98 F 38 18 131/62 95
10/09/23 07:49 10/09/23 07:49 10/09/23 07:49 10/09/23 07:49 10/09/23 07:49
Intake and Output
10/08/23 10/09/23 10/10/23
06:59 06:59 06:59
Intake Total 3943 / 3943 960 / 960
Output Total 1775 / 1775 700 / 700
Balance 2168 / 2168 260 / 260
Intake:
Oral fluids 1443 / 1443 960 / 960
IV fluids (Total) 2500 / 2500
NS 100 / 100
Output:
Urine, Voided 1775 / 1775 700 / 700
Other:
Number of approximated MODERATE 2 2
amounts of urine
Number of approximated LARGE 2
amounts of urine
Laboratory Results
10/09/23 07:23
10/09/23 07:23
Physical Exam
-
General - no acute distress
--- NOTE | 2023-10-09 10:14 | W.PN.HOSP.TC ---
Today's Communication/Plan
-
possible DC today if we see HR rise appropriately with PT
F/U further cardiology recommendations
Assessment / Plan
Assessment / Plan
Physical Exam
General: Well Developed, Well Nourished, No Apparent Distress, Comfortable and Conversant
HEENT: NormoCephalic, Anicteric and Moist mucous membranes
Respiratory: Clear; No Wheezes, Rales or Rhonchi
Cardiac: S1/S2 and Regular Rhythm; No Murmur
Breast: Deferred by me
GI: Soft, Non Tender, Non Distended and Normal Bowel Sounds
Genito-urinary: No costovertebral tender (with deep palpation to Lt CVA on my exam )
Musculoskeletal: No Edema
Skin: Warm and Dry
Neuro: AO x 3 and Nonfocal/grossly intact
Psych: Calm and Intact Judgment/Insight
TTE
CONCLUSIONS
Normal left ventricular size, wall thickness and systolic function. No regional
wall motion abnormalities are seen. LV ejection fraction is 55-60% by Morrison's
method of discs. Normal diastolic function.
Mitral valve opens normally. Thickened mitral valve leaflets. Mild to moderate
mitral regurgitation.
Trileaflet aortic valve. Aortic sclerosis without stenosis. Trace aortic
insufficiency.
Tricuspid valve opens normally. Mild tricuspid regurgitation. Estimated
pulmonary artery pressure of 46 mmHg. Assuming a right atrial pressure of 3
mmHg.
#Sepsis
#Complex left ureteral stone
Pyelonephritis
Gram Negative Bacteremia
-continue IV Ceftriaxone 2G q 24 hours
-s/p cysto/stent placement on 10/06
-final cultures with belcher-sensitive E. Coli
-appreciate Urology consult
-OK to stop IVF
-eventual transition to Cefdinir to complete 2 week course
Bradycardia - asymptomatic
-K and Mag OK
-EKG with bradycardia @ 38, TWI III, aVF, V5, poor R wave progression
-trend Troponins, TTE results above
-cardiology consult appreciated
will order PT/OT for today
-atropine at bedside
Essential HTN
- held HCTZ for now --> patient wasn't taking at home
DVT Px: HSQ
Code: Full
Total time spent on today's encounter was 50 minutes which included time spent in counseling the patient/family regarding diagnosis and treatment plan as listed above, goals of care, and symptom management. Case was discussed with nursing staff,
specialists, and care coordinators/case management. All labs and imaging personally reviewed by me. Remainder the time spent in detailed review of previous records, lab data, imaging, and other medical provider documentation.
Anticipated Discharge: Within 24 hours
Subjective/Interval History
-
Date of Service: October 09, 2023
feeling well
hoping to go home today no lightheadedness or dizziness
Objective Data
-
Labs:
Laboratory Results
10/09/23
07:23
WBC 9.4
Hgb 11.8 L
Hct 35.1 L
Plt Count 145
Sodium 140
Potassium 4.4
Chloride 111 H
Carbon Dioxide 23
BUN 26 H
Creatinine 0.9
Glucose 112 H
Calcium 9.1
Total Bilirubin 0.4
AST 52 H
ALT 139 H
Alkaline Phosphatase 77
Vital Signs:
Vital Signs
Temp Pulse Resp BP Pulse Ox
98 F 38 18 131/62 95
10/09/23 07:49 10/09/23 07:49 10/09/23 07:49 10/09/23 07:49 10/09/23 07:49
I&O
10/08/23 10/09/23 10/10/23
06:59 06:59 06:59
Intake Total 3943 / 3943 960 / 960
Output Total 1775 / 1775 700 / 700
Balance 2168 / 2168 260 / 260
Review of Systems
-
History Source: Patient
All other systems: Reviewed and negative
Physical Exam
-
General: No Apparent Distress
HEENT: PERRLA
Respiratory: Clear to Auscultation; Negative Wheezes
Cardiac: Regular Rhythm and S1/S2
GI: Soft and Nontender
Musculoskeletal: No Edema
Skin: Warm and Dry; Negative Rash
Neuro: AO x 3
Psych: Calm
Data Reviewed
-
Diagnostic Radiology: Report Reviewed by me
Labs: Labs Reviewed by me
--- NOTE | 2023-10-09 10:17 | W.PN.CARDCBS ---
Addendum entered and electronically signed by David Gallegos DO 10/09/23 12:38:
I saw and examined the patient.
The Automotive Design Drafter's note was reviewed and I agree with the note.
Comment:
Plan:
Continue tele for asymptomatic sinus bradycardia with no significant pauses.
Will consider placement of [employer] monitor at d/c.
Lasix 20 mg IV X 1 today given basilar rales on exam.Pt has hydrated and received IVF
Echo with preserved EF and mild to moderate MR.
Likely stable for d/c next 24 hrs from cardiology perspective.
Discussed with primary service.
Original Note:
Today's Communication / Plan
-
asymptomatic sinus elbert
echo ok
monitor upon DC
check proBNP, may require dose of lasix
Impression / Plan
-
PCP: Dr. Elza Gutierrez
Shift Stacker: None prior to admission, initial consultation Dr. Norris
Impression:
Presented 10/06/2023 with rigors, weakness, fevers
Sepsis with gram-negative bacteremia
UTI
Left ureteral stone with complex left renal stone burden
s/p cystoscopy and left ureteral stent placement 10/07/2023
Sinus bradycardia
History of kidney stones
Idiopathic neuropathy of feet
Hysterectomy/cystocele/rectocele repair 2004
Inguinal/umbilical hernia repair December 2022
Right knee meniscal surgery June 2023
Echo 10/08/2023: EF 55 to 60%, mild to moderate MR, trace AI, mild TR, PAP 46 mmHg
Plan:
-She presented with left-sided flank pain. Noted to have urosepsis secondary to UTI and complex left renal urethral stone. Status post cystoscopy with left ureteral stent placement 10/07/2023
-Continue antibiotics
-Postprocedure, patient noted to have asymptomatic sinus bradycardia with heart rates into the 30s at times. No evidence of pauses or av block. She is asymptomatic with this, even with ambulation around the room.
-Echocardiogram with results as above, results reviewed with patient today.
-Avoid AV alexis blocking agents
-Check TSH
-trops 0.02 range.
-patient with some feelings of crackling with taking deep breath. noted on lung exam as well. check proBNP. she reports she has been drinking a lot of water to pass her stone
-LFTs also elevated, follow
-will plan for outpatient site monitor upon DC
HPI 10/08/2023:
Patient is a healthy 78-year-old female with past medical history significant for kidney stones, idiopathic neuropathy of feet who was recently was vacationing in [place] and upon returning home reported feeling unwell associated with shakes, rigors
and left flank pain. On the evening of 10/06/2023 patient developed acute onset of chills, rigors, nausea and vomiting causing her to present to emergency department. She was noted to have UTI with concern for sepsis complicated by left urethral
stone and gram-negative bacteremia. She was placed on IV antibiotics underwent cystoscopy with left urethral stent placement on 10/07/2023. Postoperatively patient developed asymptomatic bradycardia with heart rates in the 30s bpm prompting
cardiology consult. Patient reports at baseline she is active in the yard and gardening without cardiac complaints including chest pain, shortness of breath, dizziness, lightheadedness, syncope or palpitations. She reports years ago she had a
stress test after noting some mild dyspnea on exertion on 1 occasion. Stress test was unremarkable. She does not follow with cardiology as an outpatient. She does have a brother who suddenly at the age of 57. Unknown cause
Progress Note - Shift Stacker
Subjective
Date of Service: October 09, 2023
Denies chest pain, palpitations, lightheadedness. Ambulatory in room without difficulty. C/o some gurgling in throat with deep breath.
Objective
Labs:
10/09/23 07:23
10/09/23 07:23
Labs
Hgb 11.8 g/dL (12.0-16.0) L 10/09/23 07:23
Hct 35.1 % (37.0-47.0) L 10/09/23 07:23
Plt Count 145 10^3/uL (130-400) 10/09/23 07:23
Sodium 140 mmol/L (135-145) 10/09/23 07:23
Potassium 4.4 mmol/L (3.5-5.1) 10/09/23 07:23
BUN 26 mg/dl (7-17) H 10/09/23 07:23
Creatinine 0.9 mg/dL (0.6-1.0) 10/09/23 07:23
Glucose 112 mg/dl (70-99) H 10/09/23 07:23
Troponins
10/08/23 10/08/23 10/08/23
09:04 15:37 21:25
Troponin I 0.023 0.017 D 0.021
Vital Signs and I&O:
Vital Signs
Temp Pulse Resp BP Pulse Ox
98 F 38 18 131/62 95
10/09/23 07:49 10/09/23 07:49 10/09/23 07:49 10/09/23 07:49 10/09/23 07:49
Vital Signs
Temp Pulse Resp BP Pulse Ox
98 F 38 18 131/62 95
10/09/23 07:49 10/09/23 07:49 10/09/23 07:49 10/09/23 07:49 10/09/23 07:49
Intake & Output
10/07/23 10/08/23 10/09/23 10/10/23
07:59 07:59 07:59 07:59
Intake Total 3943 / 3943 960 / 960
Output Total 300 / 300 1775 / 1775 700 / 700
Balance -300 / -300 2168 / 2168 260 / 260
Physical Exam
Physical Exam
GEN: No distress, awake, alert, oriented x3
HEENT: supple, anicteric, mmm, eomi
LUNGS: Crackles B/L bases, no wheezes
CV: Reg and elbert, S1/S2, no murmur
ABD: soft, BS+, NT/ND
EXT: No cyanosis, clubbing. trace edema of B/L LE
NEURO: Gross non-focal
SKIN: Warm, pink, dry. No rash
[2023-10-09 12:10] LABS: NT-proBNP 2850 pg/ml
[2023-10-09 12:32] LABS: TSH Reflex To Free T4 3.07 uIU/ml (0.47-4.68)
[2023-10-09] MEDS: LASIX 20 MG IV (13:04)
[2023-10-09] MEDS: FLUSH (NSS) 2 FLUSH IV ×2 (13:05→15:26)
--- NOTE | 2023-10-09 14:31 | PTOTSP ---
pt currently demonstrates ability to complete simple ADLs, functional transfers, ambulation with supervision to no assistance. no acute OT needs identified at this time, will sign off.
[2023-10-09] MEDS: STERILE WATER FOR INJECTION 20 ML IV (15:25)
[2023-10-09] MEDS: ROCEPHIN 2000 MG IV (15:25)
--- NOTE | 2023-10-09 16:09 | CM ---
Reviewed the chart notes and spoke with the patient at the bedside. IMM signed and placed on the chart. CM continues to be available to patient/family and is monitoring medical plan for needs at discharge.
Plan: Discharge to home when medically stable.
[2023-10-10] MEDS: Pyridium 100 MG PO ×2 (00:22→08:13)
[2023-10-10 03:10] VITALS: BP 130/56
[2023-10-10 06:00] VITALS: BMI 22.6
--- NOTE | 2023-10-10 07:25 | W.PN.UPDATE ---
Update Note
Progress Note Update
pt remains stable
home with oral antibx regimen when medically cleared
[2023-10-10 07:40] VITALS: BP 140/60
[2023-10-10] MEDS: HEPARIN 5000 UNITS SC (08:14)
[2023-10-10 08:24] LABS: Hematocrit 37.4 % (37.0-47.0); Hemoglobin 12.5 g/dL (12.0-16.0); Mean Corp Hgb Conc. 33.4 g/dL (33.0-37.0); Mean Corpuscular Hgb 29.4 pg (27.0-31.0); Platelet Count 146 10^3/uL (130-400); Red Blood Cell Count 4.25 10^6/uL (4.20-5.40); Red Cell Dist. Width 13.2 % (11.5-14.5); White Blood Cell Count 8.2 10^3/uL (4.8-10.8)
--- NOTE | 2023-10-10 08:56 | W.PN.CARDCBS ---
Addendum entered and electronically signed by Charanjit Norris MD 10/10/23 09:20:
I saw and examined the patient.
The L TACKER or PA's note was reviewed and I agree with the note.
Comment: General: Well developed, well nourished in NAD.
Stable cardiology status for discharge. Resume outpatient Lasix. Will place monitor on discharge. Discussed with patient in detail and follow-up arranged
Original Note:
Today's Communication / Plan
-
Heart rate trends appear to be slightly improved overnight.
Responded well to IV Lasix x 1 for volume overload felt to be secondary to fluid resuscitation
Resume outpatient HCTZ 12.5 mg daily
media monitor to be placed prior to discharge
Outpatient cardiac follow-up arranged
Impression / Plan
-
PCP: Dr. Elza Gutierrez
Stock Digger: None prior to admission, initial consultation Dr. Norris
Impression:
Presented 10/06/2023 with rigors, weakness, fevers
Sepsis with gram-negative bacteremia
UTI
Left ureteral stone with complex left renal stone burden
s/p cystoscopy and left ureteral stent placement 10/07/2023
Iatrogenic volume overload from fluid resuscitation
Sinus bradycardia
History of kidney stones
Idiopathic neuropathy of feet
Hysterectomy/cystocele/rectocele repair 2004
Inguinal/umbilical hernia repair December 2022
Right knee meniscal surgery June 2023
Echo 10/08/2023: EF 55 to 60%, mild to moderate MR, trace AI, mild TR, PAP 46 mmHg
Plan:
-She presented with left-sided flank pain. Noted to have urosepsis secondary to UTI and complex left renal urethral stone. Status post cystoscopy with left ureteral stent placement 10/07/2023
-Continue antibiotics per urology/primary service
-Postprocedure, patient noted to have asymptomatic sinus bradycardia with heart rates into the 30s at times. She remains asymptomatic with this. No evidence of pauses or av block on review of tele overnight and HR trends appear to be improving.
will plan for outpatient manager monitoring to be placed prior to DC
-Echocardiogram with results as above
-Avoid AV alexis blocking agents
-TSH WNL
-she was felt to be volume overloaded from fluid resuscitation with proBNP 2850 and given IV lasix 20mg x1 on 10/08. weight down today if accurate. she will resume the HCTZ 12.5mg daily she had been taking prior to admission and follow daily weights
as OP
-LFTs also elevated, follow
-ok for DC today from cardiac standpoint. OP cardiac follow up arranged
HPI 10/08/2023:
Patient is a healthy 78-year-old female with past medical history significant for kidney stones, idiopathic neuropathy of feet who was recently was vacationing in [place] and upon returning home reported feeling unwell associated with shakes, rigors
and left flank pain. On the evening of 10/06/2023 patient developed acute onset of chills, rigors, nausea and vomiting causing her to present to emergency department. She was noted to have UTI with concern for sepsis complicated by left urethral
stone and gram-negative bacteremia. She was placed on IV antibiotics underwent cystoscopy with left urethral stent placement on 10/07/2023. Postoperatively patient developed asymptomatic bradycardia with heart rates in the 30s bpm prompting
cardiology consult. Patient reports at baseline she is active in the yard and gardening without cardiac complaints including chest pain, shortness of breath, dizziness, lightheadedness, syncope or palpitations. She reports years ago she had a
stress test after noting some mild dyspnea on exertion on 1 occasion. Stress test was unremarkable. She does not follow with cardiology as an outpatient. She does have a brother who suddenly at the age of 57. Unknown cause
Progress Note - Stock Digger
Subjective
Date of Service: October 10, 2023
Denies chest pain, shortness of breath, palpitations. Reports good urine output yesterday.
Objective
Labs:
10/10/23 07:48
Labs
Hgb 12.5 g/dL (12.0-16.0) 10/10/23 07:48
Hct 37.4 % (37.0-47.0) 10/10/23 07:48
Plt Count 146 10^3/uL (130-400) 10/10/23 07:48
Sodium 140 mmol/L (135-145) 10/09/23 07:23
Potassium 4.4 mmol/L (3.5-5.1) 10/09/23 07:23
BUN 26 mg/dl (7-17) H 10/09/23 07:23
Creatinine 0.9 mg/dL (0.6-1.0) 10/09/23 07:23
Glucose 112 mg/dl (70-99) H 10/09/23 07:23
Troponins
10/08/23 10/08/23 10/08/23
09:04 15:37 21:25
Troponin I 0.023 0.017 D 0.021
Vital Signs and I&O:
Vital Signs
Temp Pulse Resp BP Pulse Ox
98.2 F 48 18 140/60 96
10/10/23 07:40 10/10/23 07:40 10/10/23 07:40 10/10/23 07:40 10/10/23 07:40
Vital Signs
Temp Pulse Resp BP Pulse Ox
98.2 F 48 18 140/60 96
10/10/23 07:40 10/10/23 07:40 10/10/23 07:40 10/10/23 07:40 10/10/23 07:40
Intake & Output
10/08/23 10/09/23 10/10/23 10/11/23
07:59 07:59 07:59 07:59
Intake Total 3943 / 3943 960 / 960 1200 / 1200
Output Total 1775 / 1775 700 / 700
Balance 2168 / 2168 260 / 260 1200 / 1200
Physical Exam
Physical Exam
GEN: No distress, awake, alert, oriented x3
HEENT: supple, anicteric, mmm, EOMI
LUNGS: Few crackles bilateral bases, no wheezes
CV: Reg and elbert, S1/S2, no murmur
ABD: soft, BS+, NT/ND
EXT: No cyanosis, clubbing, edema
NEURO: Gross non-focal
SKIN: Warm, pink, dry. No rash
[2023-10-10 09:48] LABS: ALT (SGPT) 106 U/L (0-35); AST (SGOT) 29 U/L (14-36); Albumin 3.5 g/dl (3.5-5.0); Alkaline Phosphatase 81 U/L (38-126); Blood Urea Nitrogen 27 mg/dl (7-17); Calcium 9.3 mg/dl (8.4-10.2); Carbon Dioxide 23 mmol/L (22-30); Chloride 107 mmol/L (98-107); Estimated Creatinine Clearance 61 ml/min; Glucose 89 mg/dl (70-99); Magnesium 1.9 mg/dl (1.6-2.3); Potassium 3.9 mmol/L (3.5-5.1); Sodium 139 mmol/L (135-145); Total Bilirubin 0.8 mg/dl (0.2-1.3); Total Protein 6.3 g/dl (6.3-8.2); eGFR > 60.00
--- NOTE | 2023-10-10 10:27 | W.PN.HOSP.TC ---
Today's Communication/Plan
-
OK for DC today
Assessment / Plan
Assessment / Plan
TTE
CONCLUSIONS
Normal left ventricular size, wall thickness and systolic function. No regional
wall motion abnormalities are seen. LV ejection fraction is 55-60% by Morrison's
method of discs. Normal diastolic function.
Mitral valve opens normally. Thickened mitral valve leaflets. Mild to moderate
mitral regurgitation.
Trileaflet aortic valve. Aortic sclerosis without stenosis. Trace aortic
insufficiency.
Tricuspid valve opens normally. Mild tricuspid regurgitation. Estimated
pulmonary artery pressure of 46 mmHg. Assuming a right atrial pressure of 3
mmHg.
#Sepsis
#Complex left ureteral stone
Pyelonephritis
Gram Negative Bacteremia
-day 3 IV Ceftriaxone 2G - give one dose prior to DC then convert to oral Keflex tomorrow
-s/p cysto/stent placement on 10/06
-final cultures with belcher-sensitive E. Coli
-appreciate Urology consult
Bradycardia - asymptomatic
-K and Mag OK
-EKG with bradycardia @ 38, TWI III, aVF, V5, poor R wave progression
-trend Troponins, TTE results above
-cardiology consult appreciated
-HR improving
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
Essential HTN
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
DVT Px: HSQ
Code: Full
Anticipated Discharge: Today
Subjective/Interval History
-
Date of Service: October 10, 2023
feeling well
no lightheadedness or dizziness
up an dmoving around
no swelling
Objective Data
-
Labs:
Laboratory Results
10/10/23
07:48
WBC 8.2
Hgb 12.5
Hct 37.4
Plt Count 146
Sodium 139
Potassium 3.9
Chloride 107
Carbon Dioxide 23
BUN 27 H
Creatinine 0.8
Glucose 89
Calcium 9.3
Total Bilirubin 0.8
AST 29
ALT 106 H
Alkaline Phosphatase 81
Vital Signs:
Vital Signs
Temp Pulse Resp BP Pulse Ox
98.2 F 48 18 140/60 96
10/10/23 07:40 10/10/23 07:40 10/10/23 07:40 10/10/23 07:40 10/10/23 07:40
I&O
10/09/23 10/10/23 10/11/23
06:59 06:59 06:59
Intake Total 960 / 960 720 / 720 480 / 480
Output Total 700 / 700
Balance 260 / 260 720 / 720 480 / 480
Review of Systems
-
History Source: Patient
All other systems: Reviewed and negative
Physical Exam
-
General: No Apparent Distress
HEENT: PERRLA
Respiratory: Clear to Auscultation; Negative Wheezes
Cardiac: Regular Rhythm and S1/S2
GI: Soft and Nontender
Musculoskeletal: No Edema
Skin: Warm and Dry; Negative Rash
Neuro: AO x 3
Psych: Calm
Data Reviewed
-
Diagnostic Radiology: Report Reviewed by me
Labs: Labs Reviewed by me
--- NOTE | 2023-10-10 10:32 | W.DS.TRANS ---
DC Summary - Lead Consultant
-
Discharge Instructions:
Discharge Diagnosis/Procedures Cystoscopy and left ureteral stent placement 10/06
/; complicated urinary tract infection and
bacteremia; bradycardia
Diet Regular
Activity As tolerated
Driving Restrictions As prior to admission
Bathing Restrictions None
Blood Work BMP in 2 weeks
Specialty Instructions Weigh Daily
Instructions:
Stand-Alone Forms:
Changes to Home Medications: Yes
Discharge Medications:
DC Medications w/original date entered in [facility]
acetaminophen 325 mg tablet 650 mg (2 x 325 mg) PO Q4HPRN PRN mild pain #1 tab 01/24/23
ibuprofen 200 mg tablet 400 - 600 mg (2 - 3 x 200 mg) PO Q6HPRN PRN moderate pain #1 tab 01/24/23
cephalexin 500 mg capsule 500 mg PO QID #40 caps 10/10/23
hydrochlorothiazide 12.5 mg tablet 12.5 mg PO DAILY #30 tabs 10/10/23
phenazopyridine 100 mg tablet 100 mg PO Q8 painful urination #9 tabs 10/10/23
Home Medication Changes
10 days Keflex
HCTZ
Phenazopyridine
Pending Results: No
[2023-10-10] MEDS: STERILE WATER FOR INJECTION 20 ML IV (11:03)
[2023-10-10] MEDS: ROCEPHIN 2000 MG IV (11:03)
[2023-10-10] MEDS: FLUSH (NSS) 2 FLUSH IV (11:08)
[2023-10-10 11:25] VITALS: BP 124/52
--- NOTE | 2023-10-10 12:04 | PTCARENOTE ---
surveillance system monitor placed at bedside. pt ready for Discharge home. awaiting ride.
--- NOTE | 2023-10-10 15:40 | W.DCSUMMARY ---
Discharge Summary
Discharge Data
Date of Admission: 10/07/23
Date of Discharge: 10/10/23
-
Pending Results: No
Hospital Course
Discharging Physician : Dr. Nova Rodrigues
Disposition : Home
Primary care physician : Dr. Elza Gutierrez
Principal Discharge diagnosis : Cystoscopy and left ureteral stent placement 10/07/23; complicated urinary tract infection and bacteremia; bradycardia
Hospital Course :
Ms. Mallika Monahan is a 78 yo woman with hx nephrolithiasis, peripheral neuropathy who presents to the ER with left flank pain. Triage vitals significant for T 100.3, P 94, BP 124/98. Labs with WBC 6.1, Cr 1.0, lactate 3. CT with finding of
4mm stone proximal ureter. Patient was admitted to medicine with Urology consulting for complicated UTI and she underwent cystoscopy and left ureteral stent placement morning of 10/06. She was maintained on IV Ceftriaxone in-house. Urine and blood
cultures returned positive for belcher-sensitive E. Coli. She is discharged on 10 more days of Keflex to complete 2 week course.
Hospital course complicated by bradycardia post procedure. Patient's HR on admission was in 70's. Post Urological procedure HR was in 30's. Patient was asymptomatic, no chest pain. TTE without significant abnormalities. She was observed without
intervention and over next 48 hours HR gradually improved, mainly in 50's pre-discharge. She ambulated without dizziness. She is discharged with Holter monitor in place and will follow up closely with Cardiology.
Patient will follow up with Urology for definitive stone treatment.
Time spent on discharge was 35 minutes.
Important imaging findings :
Abdomen/Pelvis CT 10/07/23
IMPRESSION:
1. Moderate left hydronephrosis secondary to 4 mm calculus in the proximal left ureter. Left nephrolithiasis with large burden of calculi as above. Diminished left renal cortical enhancement and delayed left renal contrast excretion, findings
suggest possible pyelonephritis. Minimal right nephrolithiasis. Bilateral renal cysts and probable cysts.
2. Cholelithiasis.
3. Diverticulosis without diverticulitis.
4. Incidental subcentimeter pancreatic cystic lesion. Likely benign given the size, per the ACR white paper on incidentally detected pancreatic cystic lesions 2017, no specific imaging surveillance is recommended for a cyst of this size in a
patient of this age.
5. Early change of urinary bladder prolapse.
Procedure findings :
Discharge Plan
-
Patient Disposition: Home (Routine Discharge)
Discharge Diagnosis/Procedures: Cystoscopy and left ureteral stent placement 10/07/23; complicated urinary tract infection and bacteremia; bradycardia
Diet: Regular
Activity: As tolerated
Driving Restrictions: As prior to admission
Bathing Restrictions: None
Blood Work: BMP in 2 weeks
Specialty Instructions: Weigh Daily- Call MD for wt gain/loss 3 lbs overnight/5 lbs in 1 week
Activity Restrictions/Additional Instructions:
7 day monitoring coordinator, to be placed prior to discharge.
Referrals:
Baljit Panda Jr., MD [Active] - (call to schedule follow up appointment)
Mai Heck PA-C [Specified Professional Personl] - 11/07/23 3:00 pm (You have a cardiology follow-up appointment at the [place] office. Please call with questions)
UNKNOWN - PT DOES,NOT KNOW [Unknown Provider] -
Prescriptions:
New
cephalexin 500 mg Capsule
500 mg PO QID Qty: 40 0RF
Rx Instructions:
First dose morning of 10/11/23
phenazopyridine 100 mg Tablet
100 mg PO Q8 Qty: 9 0RF
hydrochlorothiazide 12.5 mg Tablet
12.5 mg PO DAILY Qty: 30 0RF
Continued
acetaminophen 325 mg tablet
650 mg PO Q4HPRN PRN (Reason: mild pain) Qty: 1 0RF
ibuprofen 200 mg tablet
400 - 600 mg PO Q6HPRN PRN (Reason: moderate pain) Qty: 1 0RF
Discharge Orders:
Discharge Patient (As Directed); Ordered 10/10/23
Ordered By: Nova Rodrigues
Discharge Date and Time
Discharge Date/Time: 10/10/23 12:08
Print Language: AUSTRIAN
== END 2023-10-10 12:08 | disposition home or self-care (01) | DRG 854 ==
LOC: 2 SOUTH 02:49
PROVIDERS: Internal Medicine; ADMITTING PHYSICIAN Internal Medicine; ATTENDING PHYSICIAN Student in an Organized Health Care Education/Training Program; CONSULT PHYSICIAN Internal Medicine Cardiovascular Disease; CONSULT PHYSICIAN Specialist; EMERGENCY PHYSICIAN Emergency Medicine; FAMILY PHYSICIAN Internal Medicine
PROC: 0T778DZ Dilation of Left Ureter with Intraluminal Device, Via Natural or Artificial Opening Endoscopic (ICD-10-PCS; 2023-10-07)
DX: A41.9 Sepsis, unspecified organism (principal); N13.6 Pyonephrosis; N39.0 Urinary tract infection, site not specified
CPT/HCPCS: 74018; 74177; 76000; 80053; 81003; 81015; 83605; 83690; 83735; 83880; 84443; 84484; 85025; 85027; 87040; 87077; 87086; 87149; 87186; 87205; 87811; 93005; 93306; 96361; 96365; 96375; 97161; 97165; 99291; A4300; C2617; Q9967

== ENCOUNTER 2023-10-26 06:10 | Day surgery (SDC) | payer OTHER, SELFPAY ==
--- NOTE | 2023-10-22 15:43 | PTCARENOTE ---
Abn ECG, Dr. Greer notified, 'Ok if stable', no new requests.
[2023-10-26] VITALS (8 sets, daily range): BP systolic 128–155; BP diastolic 59–75; BMI 21.6
[2023-10-26] MEDS: NORMOSOL-R 1000 IV (08:40)
[2023-10-26] MEDS: DEMEROL 12.5 MG IV (11:13)
[2023-10-26] MEDS: DETROL LA 4 MG PO (11:37)
[2023-10-28 23:04] LABS: Stone Analysis Mass 62 mg
== END 2023-10-26 13:09 | disposition home or self-care (01) ==
LOC: SDS 06:10
PROVIDERS: ATTENDING PHYSICIAN Specialist
DX: N20.2 Calculus of kidney with calculus of ureter (principal)
CPT/HCPCS: 52353; 74018; 76000; 82365; C1894; C2617

== ENCOUNTER 2023-11-29 06:05 | Day surgery (SDC) | payer OTHER, SELFPAY ==
[2023-11-29] VITALS (8 sets, daily range): BP systolic 131–145; BP diastolic 60–65; BMI 22.2
[2023-11-29] MEDS: NORMOSOL-R/PLASMALYTE-A 1000 IV (06:31)
[2023-12-03 18:49] LABS: Stone Analysis Mass 231 mg
== END 2023-11-29 10:20 | disposition home or self-care (01) ==
LOC: SDS 06:05
PROVIDERS: ATTENDING PHYSICIAN Specialist
DX: N20.2 Calculus of kidney with calculus of ureter (principal)
CPT/HCPCS: 52356; 74420; 76000; 82365; C1894; C2617

== ENCOUNTER → 2024-03-04 08:39 | Outpatient (REF) | payer OTHER, SELFPAY | LOC: RAD 08:39 | PROVIDERS: ATTENDING PHYSICIAN Specialist; FAMILY PHYSICIAN Internal Medicine | DX: N20.0 Calculus of kidney (principal) | CPT/HCPCS: 74018 ==

== ENCOUNTER 2024-08-21 02:53 | Emergency (ER) | payer OTHER, SELFPAY ==
[2024-08-21 02:57] VITALS: BP 138/70
--- NOTE | 2024-08-21 03:26 | ED.GENMED ---
History of Present Illness
General
Chief Complaint: Musculo-Skeletal Complaint
Source: patient
Exam Limitations: none
Time Seen by Provider: 08/21/24 03:06
Nursing documentation reviewed up to this point in time: agreed with
History of Present Illness
History of Present Illness:
This is a quite hearty 79-year-old woman who has history of hypertension maintained on hydrochlorothiazide. She presents with 1 week history of posterior neck pain. No insightful injury but admits that pain began after a day of weeding in her
garden. While gardening she was bitten by an insect on her right forearm and noted a red itchy area to her forearm which has been stable. No other rashes, no fever, no headache, no sore throat. Posterior neck pain is much worse with movement of
her neck in all graner more so with extension. She denies radiation of the pain, no weakness nor numbness. No history of similar episodes in the past.
She has been taking ibuprofen throughout the week with mild but temporary relief.
She was evaluated at urgent care on Sunday, prescribed tizanidine to be taken at nighttime. She took a dose tonight as well as last night but admits to waking with no relief of pain.
She has driven herself to the ED.
Past History
Past History
ED Past Medical History: HTN and Other (Kidney stones, idiopathic neuropathy of feet)
ED Past Surgical History: Gynecological (Hysterectomy/cystocele/rectocele repair 2004) and Other (Inguinal as well as umbilical hernia repair December 2022)
Social History
Tobacco: Non-smoker
Alcohol: None
Drug: None
Personal:
Living: with family
Employment: Retired
Family History
Family History: Other (Noncontributory)
Phy Exam
Physical Exam
Physical Exam:
GENERAL: 79-year-old woman appears somewhat younger than stated age, bright and alert, pleasant, easily communicative. Sitting upright on bench in exam room. Holding head and neck in neutral position, resistant to reposition. Vital signs within
normal limits.
EYE: pupils equal and reactive. anicteric
NECK: Supple, mild global tenderness to the posterior neck with moderate tenderness paracervical musculature more so on the right than the left. There is no soft tissue swelling, no erythema. Moderately restricted range of motion in all garner.
No meningismus, no significant adenopathy.
ENT: posterior pharynx is clear, oral mucosa is moist. TM clear b/l, nares patent.
CARDIAC: Regular rate and rhythm. no murmur.
LUNGS: Clear breath sounds bilaterally, no acute respiratory distress, no wheezes/rales/rhonchi
ABDOMEN: Soft, nondistended, without focal tenderness, normoactive BS.
NEUROLOGICAL: Alert and oriented x3, no focal neuro deficits. Gait is logan and steady.
SKIN: Warm and dry, normal color, skin intact. There is a circular minimally raised erythematous patch right medial forearm, minimally pruritic. There is no central clearing. No palpable heat.
MUSCULOSKELETAL: No C/C/E. peripheral pulses are full and equal b/l. No palpable tenderness.
PSYCH: Normal and appropriate interaction.
Course
Orders/Labs/Results
Orders:
Orders
08/21/24 03:16
Ketorolac [Toradol] 15 mg IV NOW STA
08/21/24 03:35
CRP [C-Reactive Protein] Urgent
Complete Blood Count/With Diff Urgent
Comprehensive Metabolic Panel Urgent
Lyme Progressive Urgent
Sed Rate [Erythrocyte Sed Rate] Urgent
08/21/24 04:14
CT Cervical Spine W/ Iv Contra Urgent
Comment:
Reason For Exam: severe post neck pain x 1 week
Abnormal Lab Results
08/21/24
03:35
ESR 44 H mm/hour
(0-20)
Chloride 109 H mmol/L
(98-107)
BUN 29 H mg/dl
(7-17)
Glucose 135 H mg/dl
(70-99)
C-Reactive Protein 22.80 H mg/L
(0.0-10.00)
08/21/24 03:35
08/21/24 03:35
Vital Signs
Initial and Last Documented VS:
Initial Vital Signs
Temp Pulse Resp BP Pulse Ox
97.4 F 70 18 138/70 100
08/21/24 02:57 08/21/24 02:57 08/21/24 02:57 08/21/24 02:57 08/21/24 02:57
Last Documented Vital Signs
Temp Pulse Resp BP Pulse Ox
97.4 F 70 18 138/70 100
08/21/24 02:57 08/21/24 02:57 08/21/24 02:57 08/21/24 02:57 08/21/24 02:57
MDM/Problems Addressed
Differential Diagnosis Includes:
Concern for musculoskeletal neck pain/cervical strain.
Pruritic erythematous patch right forearm does appear to be insect bite in nature but must consider tick bite, must consider acute Lyme's arthritis, other consideration is inflammatory arthropathy. Patient has not had a fever, no flulike symptoms,
no history of immunocompromise, no risk factors for bacteremia thus infectious process is unlikely.
It is reassuring that there is no radicular signs or symptoms however patient appears to be moderately uncomfortable with significantly limited cervical range of motion.
Will check laboratory studies including inflammatory markers and Lyme titer.
Will give an IV dose of Toradol.
Will consider imaging depending on clinical course and laboratory results.
Chronic conditions affecting care: HTN
*Radiology
Radiology exam reviewed: radiology read reviewed
*Pulse Oximetry
Patient hypoxic: no
*Critical Care Note
Total Time (30-74mins, 75-104mins- exclusive of procedures): Not Applicable
Update Note
Update Note:
04:20
Mild improvement in posterior neck pain after IV dose of Toradol.
Labs are unremarkable save for mildly elevated inflammatory markers with sed rate of 44, CRP of 22.8.
Due to significant pain, elevate inflammatory markers will check CT cervical spine with IV contrast.
05:30
Posterior neck pain moderately improved.
Moderate improvement in range of motion of cervical spine but continues with moderate limitations.
CT cervical spine is unremarkable.
I suspect acute severe cervical strain. She continues to have no radicular signs or symptoms, remains afebrile.
Lyme titer is pending.
Will treat with tapering course of prednisone and patient cautioned to avoid all NSAIDs while taking prednisone. She may take Tylenol as needed for mild pain and will add small prescription for tramadol for as needed moderate pain.
Recommend she discontinue tizanidine as, generally speaking, muscle relaxants are ineffective for acute musculoskeletal strain sprain.
Recommend supportive measures, local heat as well as prompt follow-up with PCP for recheck.
Return precautions discussed.
ED Attending Note
-
Portions of this chart may have been created with voice recognition software.� Occasional wrong word or��sound alike� substitutions may have occurred due to the inherent limitations of voice recognition software.
Discharge Plan
Departure
Patient Disposition: Home (Routine Discharge)
Date of Disposition: 08/21/24
Time of Disposition: 05:37
Patient with high blood pressure during this ER visit?: No
Condition: Good
Discharge Problem:
Acute cervical myofascial strain
Instructions: Cervical Sprain ED
Prescriptions:
New
prednisone 10 mg Tablet
See Rx Instructions .ROUTE .COMPLEX Qty: 30 0RF
Rx Instructions:
Take By Mouth:
40 mg daily x3 days, 30 mg daily x3 days,
20 mg daily x3 days, 10 mg daily x3 days.
tramadol 50 mg tablet
50 mg PO BID PRN (Reason: Pain) Qty: 10 0RF
Discontinued
cephalexin 250 mg Tablet
250 mg PO DAILY
phenazopyridine 100 mg Tablet
100 mg PO BID
No Action
hydrochlorothiazide 12.5 mg tablet
12.5 mg PO PRN PRN (Reason: reduces incidence for kidney stones)
Referrals:
Elza Gutierrez, DO [Family Provider] - Follow up in 2-3 days
Activity Restrictions/Additional Instructions:
While taking prednisone, avoid NSAIDs such as ibuprofen, Advil, Aleve, Motrin. You may take Tylenol/acetaminophen 4 times daily as needed for mild pain. You have been prescribed tramadol to take twice daily as needed for moderate pain.
Discontinue tizanidine.
Try to rest your neck, you can apply local heat to your neck 15 to 20 minutes at a time 4-5 times per day.
Prompt follow-up with your primary care physician for recheck.
Interventions
Interventions:
*Risk Screen - Suicide Last Done: 08/21/24 02:57
*General Assessment Last Done: 08/21/24 03:25
*Neglect/Abuse Screening Last Done: 08/21/24 02:57
*ED- Fall Risk Assessment Last Done: 08/21/24 03:25
*ED COVID-19 Vaccine History Last Done: 08/21/24 03:25
ED-Musculoskeletal Assessment Last Done: 08/21/24 04:28
Discharge Date and Time
Print Language: JAMAICAN
[2024-08-21] MEDS: TORADOL 15 MG IV (03:35)
[2024-08-21 03:48] LABS: % Basophils 0.5 % (0-2); % Eosinophils 3.4 % (0-6); % Immature Granulocytes 0.3 % (0-0.5); % Lymphocytes 26.2 % (20.5-51.1); % Monocytes 8.4 % (1.7-9.3); % Neutrophils 61.2 % (42.2-75.2); Absolute Eosinophils 0.2 10^3/uL (0-0.7); Absolute Lymphocytes 1.5 10^3/uL (1.2-3.4); Absolute Monocytes 0.5 10^3/uL (0.1-0.6); Absolute Neutrophils 3.6 10^3/uL (1.4-6.5); Hematocrit 37.8 % (37.0-47.0); Hemoglobin 12.8 g/dL (12.0-16.0); Mean Corp Hgb Conc. 33.9 g/dL (33.0-37.0); Mean Corpuscular Hgb 30.2 pg (27.0-31.0); Mean Corpuscular Volume 89.2 fL (81.0-99.0); Mean Platelet Volume 9.5 fL (7.4-10.4); Nucleated Red Blood Cells % 0 %; Platelet Count 235 10^3/uL (130-400); Red Blood Cell Count 4.24 10^6/uL (4.20-5.40); Red Cell Dist. Width 12.7 % (11.5-14.5); White Blood Cell Count 5.8 10^3/uL (4.8-10.8)
[2024-08-21 04:02] LABS: ALT (SGPT) 23 U/L (0-35); AST (SGOT) 24 U/L (14-36); Alkaline Phosphatase 88 U/L (38-126); Blood Urea Nitrogen 29 mg/dl (7-17); Calcium 9.7 mg/dl (8.4-10.2); Carbon Dioxide 26 mmol/L (22-30); Chloride 109 mmol/L (98-107); Glucose 135 mg/dl (70-99); Potassium 4.1 mmol/L (3.5-5.1); Sodium 143 mmol/L (135-145); Total Bilirubin 0.4 mg/dl (0.2-1.3); Total Protein 7.3 g/dl (6.3-8.2); eGFR > 60.00
[2024-08-21 04:06] LABS: Erythrocyte Sed Rate 44 mm/hour (0-20)
[2024-08-21] MEDS: DELTASONE 40 MG PO (05:45)
[2024-08-21 13:11] LABS: Lyme Antibody Screen, EIA Negative (Negative)
== END 2024-08-21 05:55 | disposition home or self-care (01) ==
LOC: EMR 02:53
PROVIDERS: EMERGENCY PHYSICIAN Emergency Medicine; FAMILY PHYSICIAN Internal Medicine
DX: S16.1XXA Strain of muscle, fascia and tendon at neck level, initial encounter (principal); X50.1XXA Overexertion from prolonged static or awkward postures, initial encounter; I10 Essential (primary) hypertension
CPT/HCPCS: 99285; 96374; 72126; 80053; 85025; 85652; 86140; 86618

== ENCOUNTER → 2025-03-04 13:35 | Outpatient (REF) | payer OTHER, SELFPAY | LOC: RAD 13:35 | PROVIDERS: ATTENDING PHYSICIAN Specialist; FAMILY PHYSICIAN Internal Medicine | DX: N20.0 Calculus of kidney (principal) | CPT/HCPCS: 74018 ==